=== PATIENT | male | born 1980 | race Hispanic/Latino ===

== ENCOUNTER 2021-09-15 09:10 | Emergency (ER) | payer BC, OTHER ==
[~2021-09-15] VITALS: Ht 167.6 cm; Wt 113.4 kg
[2021-09-15 11:32] VITALS: BP 160/90
== END 2021-09-15 11:51 | disposition home or self-care (01) ==
LOC: ER 09:30
DX: S42.202A Unspecified fracture of upper end of left humerus, initial encounter for closed fracture (principal); W17.89XA Other fall from one level to another, initial encounter; Y92.89 Other specified places as the place of occurrence of the external cause; E78.00 Pure hypercholesterolemia, unspecified
CPT/HCPCS: 99283

== ENCOUNTER 2021-12-19 12:52 | Outpatient (RCR) | payer BC | END 2021-12-20 | LOC: OT 12:52 | PROVIDERS: ATTEND Specialist | DX: S42.292D Other displaced fracture of upper end of left humerus, subsequent encounter for fracture with routine healing (principal); M25.512 Pain in left shoulder; M25.612 Stiffness of left shoulder, not elsewhere classified; R53.1 Weakness ==

== ENCOUNTER 2021-12-27 11:52 | Outpatient (RCR) | payer BC | END 2022-01-20 | LOC: OT 11:52 | PROVIDERS: ATTEND Specialist | DX: S42.292D Other displaced fracture of upper end of left humerus, subsequent encounter for fracture with routine healing (principal); M25.512 Pain in left shoulder; M25.612 Stiffness of left shoulder, not elsewhere classified; R53.1 Weakness ==

== ENCOUNTER 2022-03-24 19:56 | Emergency (ER) | payer BC ==
[~2022-03-24] VITALS: Ht 167.6 cm; Wt 113.4 kg
[2022-03-24] MEDS ORDERED: TETANUS/DIPHTHERIA TOX ADULT 0.5 ML SYR IM ONE (20:15)
[2022-03-24] MEDS ORDERED: BUPIVACAINE HCL 0.25% 10ML MPF VIAL INJ ONE ×2 (20:15→20:23)
[2022-03-24] MEDS ORDERED: TETANUS/DIPHTHERIA TOX ADULT 0.5 ML SYR ONE (20:23)
[2022-03-24] MEDS ORDERED: BACITRACIN ZINC 0.9GM TP ONE ×2 (20:45→20:58)
== END 2022-03-24 20:57 | disposition home or self-care (01) ==
LOC: ER 20:10
DX: S61.217A Laceration without foreign body of left little finger without damage to nail, initial encounter (principal); W26.8XXA Contact with other sharp object(s), not elsewhere classified, initial encounter; Y92.89 Other specified places as the place of occurrence of the external cause; E78.00 Pure hypercholesterolemia, unspecified
CPT/HCPCS: 90471; 90714; 99283